=== PATIENT | male | born 1950 | race Caucasian/White ===

== ENCOUNTER 2018-08-20 20:05 | Emergency (ER) | payer MEDICARE, BC ==
[~2018-08-20] VITALS: Ht 190.5 cm; Wt 127.5 kg
[~2018-08-20 20:05] MED LIST: AEROSPAN8.9 GM; AEROSPAN8.9 GM INH; ALBU.083IS IH; ALBU90I INH; ALBU90OI; ALBU90OI INH; ALBU90OI6; ALBU90OI6 INH; ALBU90OI61 INH; ASCO500; ASCO500 PO; ASPI325 PO; ASPI81CH PO; ASPI81EC PO; Aspir 8181 MG PO; BREO ELLIPTA 11 EACH INH; CAPS60T; CETI10 PO; CETI5 PO; CIPR500 PO; CLOBETTC TOP; CLOP75 PO; DULO30 PO; EFFIENT5 MG PO; EZET10; EZET10 PO; FENO160 PO; FISH1000; FISH1000 PO; FLAX; FLAX PO; FLAX SEED OIL1000 MG PO; FLUN25SP; FLUNNIA; FOLI1; FURO20 PO; FURO40 PO; GABA300; GABA300 PO; GABA600 PO; HYDACE5 PO; HYDCOR2.5C PR; HYOS0.375T; HYOS0.375T PO; Hytrin2 MG PO; ISOMON20 PO; ISOMON30; ISRA5 PO; KRILL OIL; KRILL OIL PO; KRILL OIL500 MG PO; LORA1; LORA1 PO; LORA10; LORA10ER PO; LORA2 PO; LOSA50 PO; LOSHYD100 PO; LUMIGAN2.5 ML BOTHEYES; Lotrisone Cream45 GM TOP; MARIJAUNA; MARIJUANA; MARIJUANNA INH; METCAR750; METO50ER; MIRALAX17 GM PO; NABU750 PO; NEBI5 PO; NEOPOLHYDS OT; NIFE30ER; NITR.4SL; NITR.4SL SL; NITR.6SL SL; Nitroglycerin0.4 MG SL; OLOP.1OPSO; OLOP.1OPSO OD; OLOP.1OPSO OU; OMEP20ER; OMEP20ER PO; OMEPRAZOLE MAGN20 MG PO; POTA10T PO; PRAV20; PROAIR RESPICL90 MCG INH; RED YEAST RICE; RED YEAST RICE PO; REPATHA SU140 MG/1 M SC; ROSU10TA PO; SERT50 PO; SUPER-D3+ SOFT1 EACH PO; TAMS.4ER PO; TERA5; TERA5 PO; TICA90TA PO; TOCO400; TOCO400 PO; TRIXAICIN; UBID100 PO; VITAMIN D5000 UNIT PO; VITB100; VITB100 PO; VITB2 PO; Vitamin B PO; [UNRECOGNIZED DRUG - CODE] PO
[2018-08-20 20:41] LABS: BASOPHILS ABSOLUTE AUTO 0.06 K/mm3 (0.00-0.23); BASOPHILS PERCENT AUTO 1 % (0-2); EOSINOPHILS ABSOLUTE AUTO 0.28 K/mm3 (0.00-0.68); EOSINOPHILS PERCENT AUTO 3 % (0-6); Hematocrit 49.3 % (37.0-53.0); Hemoglobin 16.9 g/dL (13.5-17.5); IMMATURE GRAN ABSOLUTE AUTO 0.03 K/mm3 (0.00-0.10); IMMATURE GRAN PERCENT AUTO 0 % (0-1); LYMPHOCYTES ABSOLUTE AUTO 1.93 K/mm3 (0.84-5.20); LYMPHOCYTES PERCENT AUTO 19 % (21-46); MONOCYTES ABSOLUTE AUTO 1.01 K/mm3 (0.16-1.47); MONOCYTES PERCENT AUTO 10 % (4-13); Mean Corpuscular HGB 31.6 pg (26.0-34.0); Mean Corpuscular HGB Conc 34.3 g/dL (31.5-36.5); Mean Corpuscular Volume 92 fL (80-100); Mean Platelet Volume 10.1 fL (9.1-12.4); NEUTROPHILS ABSOLUTE AUTO 6.65 K/mm3 (1.96-9.15); NEUTROPHILS PERCENT AUTO 67 % (41-73); Platelet Count 201 K/mm3 (150-400); RDW Coefficient Variation 13.7 % (11.7-14.2); RDW Standard Deviation 46.8 fL (35.1-46.3); Red Blood Cell Count 5.34 M/mm3 (4.30-5.90); White Blood Cell Count 9.96 K/mm3 (4.00-11.30)
[2018-08-20 20:58] LABS: Alanine Aminotransfer (ALT/SGP 53 U/L (12-78); Albumin, Blood 3.7 g/dL (3.4-5.0); Albumin/Globulin Ratio 0.8 (0.8-1.8); Alk Phos 93 U/L (50-136); Anion Gap 8 mmol/L (6-16); Aspartate Aminotrans (AST/SGOT 27 U/L (12-37); Bilirubin, Total 0.3 mg/dL (0.1-1.0); Blood Urea Nitrogen 22 mg/dL (8-24); Bun/Creatinine Ratio 26.1 (12.0-20.0); CO2, Blood 25 mmol/L (21-32); Calcium, Blood 8.7 mg/dL (8.5-10.1); Chloride, Blood 105 mmol/L (98-108); Creatinine, Blood 0.84 mg/dL (0.60-1.20); Globulin, Blood 4.4 g/dL (2.2-4.0); Glomerular Filtration Rate >60 (60-); Glucose, Blood 154 mg/dL (70-99); Potassium, Blood 3.5 mmol/L (3.5-5.5); Sodium, Blood 138 mmol/L (136-145); Total Protein, Blood 8.1 g/dL (6.4-8.2)
== END 2018-08-20 21:52 | disposition home or self-care (01) ==
LOC: ER 20:05
PROVIDERS: Emergency Medicine
DX: K64.4 Residual hemorrhoidal skin tags (principal); Z88.8 Allergy status to other drugs, medicaments and biological substances; Z79.899 Other long term (current) drug therapy; Z79.82 Long term (current) use of aspirin; J45.909 Unspecified asthma, uncomplicated; F41.9 Anxiety disorder, unspecified; Z87.891 Personal history of nicotine dependence
CPT/HCPCS: 36415; 80053; 85025; 86850; 86900; 86901; 93005; 93010; 99283-25; J3010

== ENCOUNTER 2019-06-21 09:09 | Day surgery (SDC) | payer MEDICARE, BC ==
[~2019-06-21] VITALS: Ht 190.5 cm; Wt 128.5 kg
== END 2019-06-21 13:42 | disposition home or self-care (01) ==
LOC: ORSCSDS 09:09
PROVIDERS: Student in an Organized Health Care Education/Training Program
PROC: 0DBL8ZX Excision of Transverse Colon, Via Natural or Artificial Opening Endoscopic, Diagnostic (ICD-10-PCS; principal; 2019-06-21 10:30)
PROC: 0DBK8ZX Excision of Ascending Colon, Via Natural or Artificial Opening Endoscopic, Diagnostic (ICD-10-PCS; principal; 2019-06-21 10:30)
PROC: 0DBH8ZX Excision of Cecum, Via Natural or Artificial Opening Endoscopic, Diagnostic (ICD-10-PCS; principal; 2019-06-21 10:30)
DX: Z12.11 Encounter for screening for malignant neoplasm of colon (principal); Z86.010 Personal history of colon polyps; D12.0 Benign neoplasm of cecum; D12.2 Benign neoplasm of ascending colon; D12.3 Benign neoplasm of transverse colon; I10 Essential (primary) hypertension; E11.9 Type 2 diabetes mellitus without complications; J44.9 Chronic obstructive pulmonary disease, unspecified; I25.10 Atherosclerotic heart disease of native coronary artery without angina pectoris; K21.9 Gastro-esophageal reflux disease without esophagitis; G47.33 Obstructive sleep apnea (adult) (pediatric); Z79.899 Other long term (current) drug therapy; E66.9 Obesity, unspecified; Z68.35 Body mass index [BMI] 35.0-35.9, adult
CPT/HCPCS: 88305; J2250; J2704; J7120

== ENCOUNTER 2020-05-23 21:45 | Emergency (ER) | payer MEDICARE, BC ==
[~2020-05-23] VITALS: Ht 190.5 cm; Wt 118.4 kg
[2020-05-23 23:45] LABS: Chloride (POC) 104 mmol/L (98-108); Creatinine (POC) 0.8 mg/dL (0.8-1.3); Glucose (ISTAT POC) 162 mg/dL (70-99); Hemoglobin (POC) 16.3 g/dL (13.5-17.5); Potassium (POC) 4.4 mmol/L (3.5-5.5); Sodium (POC) 139 mmol/L (135-148); Total CO2 (POC) 25 mmol/L (21-32)
== END 2020-05-24 00:13 | disposition home or self-care (01) ==
LOC: ER 21:45
PROVIDERS: Physician Assistant
DX: G97.51 Postprocedural hemorrhage of a nervous system organ or structure following a nervous system procedure (principal); K21.9 Gastro-esophageal reflux disease without esophagitis; I10 Essential (primary) hypertension; F41.9 Anxiety disorder, unspecified; J45.909 Unspecified asthma, uncomplicated; I25.810 Atherosclerosis of coronary artery bypass graft(s) without angina pectoris; Z87.891 Personal history of nicotine dependence; Z91.041 Radiographic dye allergy status; Z88.8 Allergy status to other drugs, medicaments and biological substances; Z79.899 Other long term (current) drug therapy; Z79.82 Long term (current) use of aspirin; Z95.5 Presence of coronary angioplasty implant and graft; Z95.1 Presence of aortocoronary bypass graft
CPT/HCPCS: 36415; 76705; 80047; 85014; 99284-25

== ENCOUNTER 2020-10-31 07:28 | Day surgery (SDC) | payer MEDICARE, BC ==
[~2020-10-31] VITALS: Ht 190.5 cm; Wt 120.0 kg
--- NOTE | 2020-10-31 08:34 | NUR ---
CALL LIGHT IN REACH.
--- NOTE | 2020-10-31 12:03 | NUR ---
PT RETURNED TO RECOVERY ROOM IN BED. RIGHT FEMORAL GROIN SITE SOFT WITH NO HEMATOMA, NO BLEEDING AND INTACT DRESSING. PT DESCRIBES RIGHT GROIN SORENESS, BUT NO SHARP BACK PAIN. PT DENIES CHEST PAIN. CALL LIGHT IN REACH.
--- NOTE | 2020-10-31 16:57 | NUR ---
REPORT GIVEN TO YOU RN'S PCU. NO FURTHER QUESTIONS
--- NOTE | 2020-10-31 18:48 | NUR ---
PT AR[facility]IVED FROM [facility]C FOR EXTENDED RECOVERY. THIS NURSE REVIEWED PT HISTORY WITH THE PT AND HIS . PT IS A/O X 4 WITH NO C/O PAIN. HE WAS ABLE TO AMBULATE TO THE BATHROOM WITH SUPERVISION. HIS BP WAS SLIGHTLY ELEVATED UPON ARRIVAL AND DR ODONNELL WAS NOTIFIED AND GAVE NO NEW ORDERS. CHARGE NURSE WAS MADE AWARE. PT REPORTS NO HEADACHE OR DIZZINESS BUT DOES SAY THAT HE HAS BEEN ANXIOUS TODAY ABOUT HIS PROCEDURE. PT IS ABLE TO MAKE HIS NEEDS KNOWN AND CALLS APPROPRIATELY FOR HELP.
--- NOTE | 2020-10-31 18:56 | NUR ---
SHIFT NOTE PT ARRIVES THIS EVENING POST ANGIO WITH STENT PLACEMENT X1. PT FULLY RECOVERED WHEN ARRIVED TO PCU. PT INDEPENDANT IN ROOM. HTN NOTED, DR ODONNELL CALLED ABOUT HTN WITH NO NEW ORDERS. PT STS "IT WILL GO DOWN" RT GROIN SIDE WITH SCANT DRIED BLOOD NOTED TO DRESSING WHICH HAS NOT CHANGED SINCE ARRIVING TO THE UNIT
--- NOTE | 2020-10-31 19:10 | NUR ---
ASSUMED CARE RECEIVED BEDSIDE REPORT FROM LALITA WELLINGTON AND DRAWING TENDER SAIRA; PT A&O X 4; PLEASANT AND JOKING W/ STAFF; VSS; O2 SATS >93 ON RA; DENIES CHEST PAIN; INDEPENDENT IN ROOM; DENIES NEEDS; BELONGINGS AND CALL LIGHT IN REACH.
--- NOTE | 2020-10-31 21:00 | NUR ---
PT STATED HE WAS NEEDING MEDICATIONS ADDED TO EMAR FOR EVENING DOSAGES; NOTES TAKEN AND NOTIFIED; NEW ORDERS GIVEN TO ADD FLOMAX, ASPIRIN, AND GABAPENTIN
--- NOTE | 2020-10-31 23:55 | NUR ---
UPDATE PT C/O HEADACHE AND NAUSEA; STATES SANDWICH HE ATE EARLIER DID NOT SETTLE WELL, BP ELEVATED; NOTIFIED; NEW ORDERS GIVEN FOR TYLENOL AND HYDRALAZINE; ICE PACK BROUGHT TO PT FOR PAIN IN GROIN WELL.
--- NOTE | 2020-11-01 01:10 | NUR ---
UPDATE PT EXPERIENCING EMESIS; STATES HE FEELS SLIGHTLY BETTER AFTER VOMITING; STATES CONCERN OF BP BEING ELEVATED; ADDITIONALLY, ASKS ABOUT BENADRYL BEFORE PROCEDURE HE STATES HE HAS ALLERGY TO DYES DURING ANGIO; PT DID RECEIVE BENADRYL 25MG IV DOCUMENTED IN CHART, PT NOTIFIED; CALL LIGHT IN REACH; BED IN LOWEST POSITION
--- NOTE | 2020-11-01 05:19 | NUR ---
SHIFT SUMMARY PT A&O X4; PLEASANT & COMPLIANT W/ CARE; DENIES CHEST PAIN; VSS, HOWEVER BP ELEVATED; HR IN 80'S; O2 SATS >93 ON RA; PT SBA FOR BRP DURING NOC, NO GAIT DISTURBANCES NOTED; PT CONTINUES TO STATES HE THINKS SOMETHING IS WRONG FOR HIS BP TO BE ELEVATED, STATING IT IS HIGH FOR HIM AND NAUSEA HAS SUBSIDED ONLY MINIMALLY; PT CURRENTLY RESTING IN BED; CALL LIGHT IN REACH; BED IN LOWEST POSITION; WILL CONTINUE TO MONITOR CLOSELY UNTIL HAND OFF TO DAY SHIFT RN.
[2020-11-01] MEDS ORDERED: CLOP75 PO (11:33)
== END 2020-11-01 12:20 | disposition home or self-care (01) ==
LOC: MHTC 07:28 → PCU 16:38 → MHTC 11-01 12:20
DX: I25.110 Atherosclerotic heart disease of native coronary artery with unstable angina pectoris (principal); I10 Essential (primary) hypertension; E78.5 Hyperlipidemia, unspecified; E66.9 Obesity, unspecified
CPT/HCPCS: 76937; 93455; 93571; 94640; 94760; 99152; 99153; A9270; A9270-GY; C1725; C1760; C1769; C1874; C1876; C1887; C1894; C9600; J0360; J1200; J1644; J1720; J2250; J3010; J3246; J7030; J7050; Q9967

== ENCOUNTER 2022-02-03 06:10 | Inpatient (IN) | payer MEDICARE ==
[~2022-02-03] VITALS: Ht 190.5 cm; Wt 121.5 kg
[~2022-02-03 06:10] MED LIST changes: +ALEVAZOL56.7 G1 TOP; +DORZOPSO BOTHEYES; +FAMO40 PO; +ISOSORBIDE MONO60 MG PO; +LATANOPROST2.5 M3 BOTHEYES; +NEBIVOLOL HCL2.5 MG PO; +Preparation H26 GM; +TAMSULOSIN HCL0.4 M1 PO
[2022-02-03 06:32] LABS: BASOPHILS ABSOLUTE AUTO 0.09 K/mm3 (0.00-0.23); BASOPHILS PERCENT AUTO 1 % (0-2); EOSINOPHILS ABSOLUTE AUTO 0.41 K/mm3 (0.00-0.68); EOSINOPHILS PERCENT AUTO 6 % (0-6); Hematocrit 48.4 % (37.0-53.0); Hemoglobin 16.7 g/dL (13.5-17.5); IMMATURE GRAN ABSOLUTE AUTO 0.02 K/mm3 (0.00-0.10); IMMATURE GRAN PERCENT AUTO 0 % (0-1); LYMPHOCYTES ABSOLUTE AUTO 1.58 K/mm3 (0.84-5.20); LYMPHOCYTES PERCENT AUTO 24 % (21-46); MONOCYTES ABSOLUTE AUTO 0.81 K/mm3 (0.16-1.47); MONOCYTES PERCENT AUTO 12 % (4-13); Mean Corpuscular HGB 31.2 pg (26.0-34.0); Mean Corpuscular HGB Conc 34.5 g/dL (31.5-36.5); Mean Corpuscular Volume 91 fL (80-100); Mean Platelet Volume 10.6 fL (9.1-12.4); NEUTROPHILS PERCENT AUTO 57 % (41-73); Platelet Count 182 K/mm3 (150-400); RDW Coefficient Variation 14.2 % (11.7-14.2); RDW Standard Deviation 47.1 fL (35.1-46.3); Red Blood Cell Count 5.35 M/mm3 (4.30-5.90); White Blood Cell Count 6.71 K/mm3 (4.00-11.30)
[2022-02-03 06:54] LABS: Albumin, Blood 3.8 g/dL (3.4-5.0); Albumin/Globulin Ratio 0.8 (0.8-1.8); Bilirubin, Total 0.6 mg/dL (0.1-1.0); Bun/Creatinine Ratio 24.6 (12.0-20.0); Creatinine, Blood 0.77 mg/dL (0.60-1.20); Globulin, Blood 4.5 g/dL (2.2-4.0); Potassium, Blood 4.1 mmol/L (3.5-5.5); Total Protein, Blood 8.3 g/dL (6.4-8.2)
[2022-02-03 09:01] LABS: Hematocrit 45.5 % (37.0-53.0); Hemoglobin 15.7 g/dL (13.5-17.5)
--- NOTE | 2022-02-03 11:45 | NUR ---
Patient arrived via gurney from ER post report. He was able to ambulate to PCU [address]. He states feels dizzy when sitting up and waits til feeling better before standing. He has 20ga IV in LLFA and is flushed and SL'd. He is able to use urinal and has pullups in place. He calls appropriatly whem needing to need something. MAEW. He is RA and sats >90%. at bedside. Dr House by to see patient.
[2022-02-03 14:42] LABS: Hematocrit 47.5 % (37.0-53.0); Hemoglobin 16.4 g/dL (13.5-17.5)
--- NOTE | 2022-02-03 15:30 | NUR ---
Patient has been up to bathroom twice with soft brown stool on second attempt and not a drop aof blood in toilet. He is a SBA when transferring. He denies any current pain or needs. Day surgery called and wanted him to be ready for scope and stated he was on full liquid and they wanted NPO and Dr Parks would be by to talk with him. at bedside with patient. No blleeding or blood since in PCU.
[2022-02-03 17:04] LABS: Influenza A, PCR NEGATIVE (NEGATIVE); Influenza B, PCR NEGATIVE (NEGATIVE); Resp Syncytial Virus, PCR NEGATIVE (NEGATIVE); SARS-Cov-2 (COVID-19) PCR, MMC NEGATIVE (NEGATIVE)
--- NOTE | 2022-02-03 18:36 | NUR ---
Dr Parks by and spoke with patient and . He performed rectal exam and was clear of blood. He will start on suppository and cream as well as sits bath. Patient is to be on full liquid until tomorrow to see if colon tolerates without bleeding and should be discharged 02/04.VSS, independent in room and SBA for ambulation to bathroom. ELIAN.
[2022-02-03 20:45] LABS: Hematocrit 47.5 % (37.0-53.0); Hemoglobin 16.8 g/dL (13.5-17.5)
[2022-02-04 04:29] LABS: Hematocrit 44.6 % (37.0-53.0); Hemoglobin 15.5 g/dL (13.5-17.5); Mean Corpuscular HGB 30.9 pg (26.0-34.0); Mean Corpuscular HGB Conc 34.8 g/dL (31.5-36.5); Mean Corpuscular Volume 89 fL (80-100); Mean Platelet Volume 10.8 fL (9.1-12.4); Platelet Count 198 K/mm3 (150-400); RDW Coefficient Variation 14.1 % (11.7-14.2); RDW Standard Deviation 45.9 fL (35.1-46.3); Red Blood Cell Count 5.01 M/mm3 (4.30-5.90); White Blood Cell Count 8.59 K/mm3 (4.00-11.30)
--- NOTE | 2022-02-04 06:03 | NUR ---
SHIFT SUMMARY PT ALERT AND ORIENTED X4. AFEBRILE. BP STABLE. HR SR 60-70'S. ON RA SATS OVER 93%. INDEPENDENT FOR ADL'S. C/O MINOR CHEST PAIN AFTER TAKING EVENING LASIX DOSE. SOME BLOOD IN STOOL EARLY IN SHIFT. NONE WITH RECENT BM. IN BED SLEEPING WITH CALL ALARM AT SIDE, WILL CONTINUE TO MONITOR UNTIL REPORT GIVEN TO DAYSHIFT RN
--- NOTE | 2022-02-04 12:08 | NUR ---
UPDATE THIS RN ENTERED PT ROOM FOR AFTERNOON VITALS. PT REPORTS SOB STATING "I HAVE THIS PRESSURE IN MY CHEST." WHEN ASKED TO DISCRIBE THE PRESSURE PT STATED "IT IS HARD TO EXPLAIN." WHEN ASKED IF IT FEELS LIKE SOMETHING IS SITTING ON HIS CHEST, PT REPLIED "NO. I JUST FEEL SHORT OF BREATH AND LIGHTHEADED." VSS WITH BP 137/72 AND SATS IN THE 90'S. PT REPORTS "SOB IS CONSTANT, DEEP BREATHS DO NOT MAKE IT ANY WORSE." HOB RAISED FOR RELIEF.
[2022-02-04] MEDS ORDERED: POLY500 PO (14:46)
--- NOTE | 2022-02-04 16:21 | NUR ---
DISCHARGE UPDATE DISCHARGE PACKET JILLINA OVER WITH PT AND PT AT 1555. PT DISCHARGED AT 1605 VIA WHEELCHAIR AND ON RA. PT BELONGINGS IN BAGS AND WITH PT AND PT FOR DISCHARGE. DISCHARGE PACKET IN PT BAGS AND WITH PT FOR DISCHARGE. PT ABLE TO TRANSFER SELF TO AND FROM WHEELCHAIR ON HIS OWN, TOLERATED WELL.
== END 2022-02-04 16:09 | disposition home or self-care (01) | DRG 395 ==
LOC: ER 06:10 → PCU 07:44 → ERHOLD 07:44 → PCU 11:01
PROVIDERS: Emergency Medicine; Nurse Practitioner Acute Care; Student in an Organized Health Care Education/Training Program; ADMIT Hospitalist
DX: K64.4 Residual hemorrhoidal skin tags (principal); I25.10 Atherosclerotic heart disease of native coronary artery without angina pectoris; G62.9 Polyneuropathy, unspecified; K21.9 Gastro-esophageal reflux disease without esophagitis; E66.01 Morbid (severe) obesity due to excess calories; N40.0 Benign prostatic hyperplasia without lower urinary tract symptoms; K64.8 Other hemorrhoids; G47.33 Obstructive sleep apnea (adult) (pediatric); J44.9 Chronic obstructive pulmonary disease, unspecified; I10 Essential (primary) hypertension; F41.9 Anxiety disorder, unspecified; Z68.33 Body mass index [BMI] 33.0-33.9, adult; Z95.1 Presence of aortocoronary bypass graft; Z90.89 Acquired absence of other organs; Z98.890 Other specified postprocedural states; Z88.8 Allergy status to other drugs, medicaments and biological substances; Z79.02 Long term (current) use of antithrombotics/antiplatelets; Z79.82 Long term (current) use of aspirin; Z79.899 Other long term (current) drug therapy
CPT/HCPCS: 0241U; 36415; 80053; 84484; 85014; 85018; 85025; 85027; 86850; 86900; 86901; 93005; 93010; 99285-25; A9270

== ENCOUNTER 2022-02-22 11:59 | Day surgery (SDC) | payer MEDICARE, BC ==
[~2022-02-22] VITALS: Ht 190.5 cm; Wt 118.7 kg
[~2022-02-22 11:59] MED LIST changes: +POLY500 PO
[2022-02-22] MEDS ORDERED: FLUN25SP (12:32)
[2022-02-22] MEDS ORDERED: BREO ELLIPTA 11 EAC1 (12:34)
[2022-02-22] MEDS ORDERED: TAMS.4ER (12:35)
[2022-02-22] MEDS ORDERED: ALBU8HFA2 (12:35)
[2022-02-22] MEDS ORDERED: NEBI5 (12:36)
== END 2022-02-22 14:59 | disposition home or self-care (01) ==
LOC: ORSCSDS 11:59
PROVIDERS: Student in an Organized Health Care Education/Training Program
PROC: 0DBK8ZX Excision of Ascending Colon, Via Natural or Artificial Opening Endoscopic, Diagnostic (ICD-10-PCS; principal; 2022-02-22 13:15)
PROC: 0DBL8ZX Excision of Transverse Colon, Via Natural or Artificial Opening Endoscopic, Diagnostic (ICD-10-PCS; principal; 2022-02-22 13:15)
PROC: 0DBM8ZX Excision of Descending Colon, Via Natural or Artificial Opening Endoscopic, Diagnostic (ICD-10-PCS; principal; 2022-02-22 13:15)
DX: Z12.11 Encounter for screening for malignant neoplasm of colon (principal); K57.30 Diverticulosis of large intestine without perforation or abscess without bleeding; K64.4 Residual hemorrhoidal skin tags; K64.8 Other hemorrhoids; Z86.010 Personal history of colon polyps; E11.9 Type 2 diabetes mellitus without complications; I25.10 Atherosclerotic heart disease of native coronary artery without angina pectoris; I10 Essential (primary) hypertension; E78.5 Hyperlipidemia, unspecified; G47.33 Obstructive sleep apnea (adult) (pediatric); F32.A Depression, unspecified; E66.9 Obesity, unspecified; Z68.32 Body mass index [BMI] 32.0-32.9, adult; Z79.01 Long term (current) use of anticoagulants; Z79.82 Long term (current) use of aspirin; Z79.899 Other long term (current) drug therapy
CPT/HCPCS: 88305; A9270; J2704; J7120

== ENCOUNTER → 2022-12-17 | Outpatient (CLI) | payer MEDICARE, BC ==
[~2022-12-17] MED LIST changes: +ALBU8HFA2; +BREO ELLIPTA 11 EAC1; +NEBI5; +TAMS.4ER
[2022-12-17 19:56] LABS: Phosphorus, Urine 39.9 mg/dL (20.0-60.0)
== END | disposition home or self-care (01) ==
LOC: LAB SHORT 13:49 → LAB 13:49
PROVIDERS: Internal Medicine
DX: E83.31 Familial hypophosphatemia (principal)
CPT/HCPCS: 81050; 84105

== ENCOUNTER 2023-03-14 07:51 | Day surgery (SDC) | payer OTHER ==
[~2023-03-14] VITALS: Ht 190.5 cm; Wt 114.9 kg
[2023-03-14] VITALS (10 sets, daily range): BP systolic 102–131; BP diastolic 56–82
[~2023-03-14 07:51] MED LIST changes: -ALBU8HFA2; +ALBU8HFA2 INH; +FLUTICASONE-SA1 EAC2 INH; +HYDACE25S PR; +Isosorbide Mono30 MG PO; +NASALIDE
--- NOTE | 2023-03-14 09:22 | NUR ---
Ambulatory in Day Surgery. History, Chart, Medications and Allergies reviewed before start of procedure.Lungs clear T/O to Auscultation. Patient confirms NPO status and agrees with scheduled surgery. Pre-Op teaching done. Pt verbalizes understanding. Patient States Post-Procedure ride home has been arranged.
[2023-03-14 09:50] LABS: Bun/Creatinine Ratio 15.2 (12.0-20.0); Calcium, Blood 9.4 mg/dL (8.5-10.1); Creatinine, Blood 0.72 mg/dL (0.60-1.20)
== END 2023-03-14 11:58 | disposition home or self-care (01) ==
LOC: ORSCMMR 07:51 → ORD 09:15 → ORSCMMR 09:15
PROVIDERS: Surgery
PROC: 06BY0ZC Excision of Hemorrhoidal Plexus, Open Approach (ICD-10-PCS; principal; 2023-03-14 09:15)
DX: K64.2 Third degree hemorrhoids (principal); K64.4 Residual hemorrhoidal skin tags; I25.10 Atherosclerotic heart disease of native coronary artery without angina pectoris; J44.9 Chronic obstructive pulmonary disease, unspecified; G47.33 Obstructive sleep apnea (adult) (pediatric); F41.9 Anxiety disorder, unspecified; F32.A Depression, unspecified; E11.42 Type 2 diabetes mellitus with diabetic polyneuropathy; I25.2 Old myocardial infarction; Z79.899 Other long term (current) drug therapy; Z79.82 Long term (current) use of aspirin
CPT/HCPCS: 36415; 80048; 82947; 88304; J0694; J1100; J2405; J2704; J3010; J7120

== ENCOUNTER 2024-08-23 09:10 | Emergency (ER) | payer MEDICARE, BC ==
[~2024-08-23] VITALS: Ht 190.5 cm; Wt 115.7 kg
[2024-08-23 09:23] VITALS: BP 174/111
[2024-08-23 09:51] LABS: BASOPHILS ABSOLUTE AUTO 0.07 K/mm3 (0.00-0.23); BASOPHILS PERCENT AUTO 1 % (0-2); EOSINOPHILS ABSOLUTE AUTO 0.32 K/mm3 (0.00-0.68); EOSINOPHILS PERCENT AUTO 5 % (0-6); Hematocrit 52.3 % (37.0-53.0); Hemoglobin 18.3 g/dL (13.5-17.5); IMMATURE GRAN ABSOLUTE AUTO 0.02 K/mm3 (0.00-0.10); IMMATURE GRAN PERCENT AUTO 0 % (0-1); LYMPHOCYTES ABSOLUTE AUTO 1.02 K/mm3 (0.84-5.20); LYMPHOCYTES PERCENT AUTO 15 % (21-46); MONOCYTES ABSOLUTE AUTO 0.57 K/mm3 (0.16-1.47); MONOCYTES PERCENT AUTO 8 % (4-13); Mean Corpuscular HGB 31.1 pg (26.0-34.0); Mean Corpuscular Volume 89 fL (80-100); Mean Platelet Volume 9.8 fL (9.1-12.4); NEUTROPHILS ABSOLUTE AUTO 4.91 K/mm3 (1.96-9.15); NEUTROPHILS PERCENT AUTO 71 % (41-73); Platelet Count 205 K/mm3 (150-400); Red Blood Cell Count 5.89 M/mm3 (4.30-5.90); White Blood Cell Count 6.91 K/mm3 (4.00-11.30)
[2024-08-23 10:07] LABS: Albumin, Blood 3.8 g/dL (3.4-5.0); Albumin/Globulin Ratio 0.7 (0.8-1.8); Bilirubin, Total 0.9 mg/dL (0.1-1.0); Bun/Creatinine Ratio 19.3 (12.0-20.0); Creatinine, Blood 0.73 mg/dL (0.60-1.20); Globulin, Blood 5.3 g/dL (2.2-4.0); Potassium, Blood 4.5 mmol/L (3.5-5.5); Total Protein, Blood 9.1 g/dL (6.4-8.2)
== END 2024-08-23 15:01 | disposition home or self-care (01) ==
LOC: ER 09:10
PROVIDERS: Emergency Medicine
DX: R07.9 Chest pain, unspecified (principal); J45.909 Unspecified asthma, uncomplicated; I10 Essential (primary) hypertension; K21.9 Gastro-esophageal reflux disease without esophagitis; Z79.51 Long term (current) use of inhaled steroids; Z79.82 Long term (current) use of aspirin; Z79.899 Other long term (current) drug therapy; Z91.041 Radiographic dye allergy status; Z88.8 Allergy status to other drugs, medicaments and biological substances
CPT/HCPCS: 36415; 71045; 80053; 84484; 85025; 93005; 93010; 99285-25

== ENCOUNTER 2025-04-11 09:56 | Emergency (ER) | payer OTHER ==
[~2025-04-11] VITALS: Ht 190.5 cm; Wt 105.7 kg
[2025-04-11] MEDS ORDERED: NS 1,000 ML IV SCH (10:40)
[2025-04-11 10:51] LABS: BASOPHILS ABSOLUTE AUTO 0.04 K/mm3 (0.00-0.23); BASOPHILS PERCENT AUTO 0 % (0-2); EOSINOPHILS ABSOLUTE AUTO 0.11 K/mm3 (0.00-0.68); EOSINOPHILS PERCENT AUTO 1 % (0-6); Hematocrit 41.1 % (37.0-53.0); Hemoglobin 14.2 g/dL (13.5-17.5); IMMATURE GRAN ABSOLUTE AUTO 0.07 K/mm3 (0.00-0.10); IMMATURE GRAN PERCENT AUTO 1 % (0-1); LYMPHOCYTES ABSOLUTE AUTO 0.98 K/mm3 (0.84-5.20); LYMPHOCYTES PERCENT AUTO 8 % (21-46); MONOCYTES ABSOLUTE AUTO 1.26 K/mm3 (0.16-1.47); MONOCYTES PERCENT AUTO 11 % (4-13); Mean Corpuscular HGB Conc 34.5 g/dL (31.5-36.5); Mean Corpuscular Volume 90 fL (80-100); NEUTROPHILS ABSOLUTE AUTO 9.51 K/mm3 (1.96-9.15); NEUTROPHILS PERCENT AUTO 80 % (41-73); NRBC ABSOLUTE 0.00 K/mm3 (0.00-0.02); NRBC Auto 0.0 /100 WBC (0.0-0.2); Platelet Count 223 K/mm3 (150-400); RDW Coefficient Variation 13.7 % (11.7-14.2); RDW Standard Deviation 45.9 fL (35.1-46.3)
[2025-04-11 11:14] LABS: Alanine Aminotransfer (ALT/SGP 22.0 U/L (12-78); Albumin, Blood 2.6 g/dL (3.4-5.0); Albumin/Globulin Ratio 0.6 (0.8-1.8); Anion Gap 5.0 mmol/L (3-11); Aspartate Aminotrans (AST/SGOT 19.0 U/L (12-37); Bilirubin, Total 1.4 mg/dL (0.1-1.0); Blood Urea Nitrogen 16.0 mg/dL (8-24); CO2, Blood 33.0 mmol/L (21-32); Calcium, Blood 9.1 mg/dL (8.5-10.1); Chloride, Blood 100.0 mmol/L (98-108); Creatinine, Blood 0.71 mg/dL (0.60-1.20); Globulin, Blood 4.5 g/dL (2.2-4.0); Glucose, Blood 128.0 mg/dL (70-99); Potassium, Blood 3.4 mmol/L (3.5-5.5); Sodium, Blood 135.0 mmol/L (136-145); Thyroid Stimulating Hormone 1.85 uIU/mL (0.360-4.800); Total Protein, Blood 7.1 g/dL (6.4-8.2)
[2025-04-11 11:30] LABS: Magnesium, Blood 2.0 mg/dL (1.6-2.4); Phosphorus, Blood 2.4 mg/dL (2.5-4.9)
[2025-04-11 11:33] LABS: Source, Urine Clean Catch
[2025-04-11 11:38] LABS: Bilirubin, Urine Neg (Neg); Color, Urine Amber (P-Yellow); Glucose Qualitative, Urine Neg (Neg); Ketones, Urine 1+ (Neg); Leukocyte Esterase, Urine 1+ (Neg); Protein, Urine 2+ (Neg); Specific Gravity, Urine 1.025 (1.003-1.022); Urobilinogen, Urine 2+ (Normal)
[2025-04-11 11:53] LABS: Red Blood Cells, Urine 0-2 /hpf (0-2)
[2025-04-11 16:30] VITALS: BP 123/62
== END 2025-04-11 17:33 | disposition home or self-care (01) ==
LOC: ER 09:56
PROVIDERS: Student in an Organized Health Care Education/Training Program
DX: R63.0 Anorexia (principal); R53.1 Weakness; K21.9 Gastro-esophageal reflux disease without esophagitis; I10 Essential (primary) hypertension; Z88.8 Allergy status to other drugs, medicaments and biological substances; Z91.041 Radiographic dye allergy status; Z79.899 Other long term (current) drug therapy; Z79.82 Long term (current) use of aspirin
CPT/HCPCS: 71045; 80053; 81001; 83735; 84100; 84443; 84484; 85025; 87086; 93005; 93010; 96360; 99285-25; A9270; J7030

== ENCOUNTER 2025-05-02 01:01 | Emergency (ER) | payer OTHER ==
[~2025-05-02] VITALS: Ht 190.5 cm; Wt 100.2 kg
[2025-05-02 04:00] VITALS: BP 127/68
== END 2025-05-02 05:18 | disposition home or self-care (01) ==
LOC: ER 01:01
DX: M54.2 Cervicalgia (principal); W01.0XXA Fall on same level from slipping, tripping and stumbling without subsequent striking against object, initial encounter; J45.909 Unspecified asthma, uncomplicated; K21.9 Gastro-esophageal reflux disease without esophagitis; I10 Essential (primary) hypertension; Z04.3 Encounter for examination and observation following other accident
CPT/HCPCS: 70450; 72125; 99285-25